=== PATIENT | male | born 1980 | race Caucasian/White ===

== ENCOUNTER → 2024-05-20 | Outpatient (CLI) | payer MEDICARE ==
--- NOTE | 2024-05-20 11:22 | CA ---
Transthoracic Echo Report Name: Sergei Serrato Age: 44 Gender: M : 1980 Exam Date: 05/20/2024 08:36 Exam Location: [facility] Ht (in): 47 Wt (lb): 90 Ordering Physician: Levi Cornejo DO Attending/Referring Phys: [employer] Fabricator Melani Avitia RDCS Procedure CPT: Indications: Cardiac Murmur Cardiac Hx: Technical Quality: Fair Contrast 1: Total Dose (mL): Contrast 2: Total Dose (mL): MEASUREMENTS (Male / Female) Normal Values 2D ECHO LV Diastolic Diameter PLAX 3.7 cm 4.2 - 5.9 / 3.9 - 5.3 cm LV Systolic Diameter PLAX 2.6 cm IVS Diastolic Thickness 0.8 cm 0.6 - 1.0 / 0.6 - 0.9 cm LVPW Diastolic Thickness 0.8 cm 0.6 - 1.0 / 0.6 - 0.9 cm LV Relative Wall Thickness 0.4 LVOT Diameter 2.0 cm Aortic Root Diameter 3.1 cm LV Diastolic Volume MOD BP 88.4 cm??? 67 - 155 / 56 - 104 cm??? LV Systolic Volume MOD BP 40.6 cm??? 22 - 58 / 19 - 49 cm??? LV Ejection Fraction MOD BP 54.1 % >= 55 % LV Cardiac Index MOD BP 2816.2 cm???/min???m??? LV Diastolic Volume MOD 4C 80.1 cm??? LV Systolic Volume MOD 4C 37.3 cm??? LV Ejection Fraction MOD 4C 53.4 % LV Cardiac Index MOD 4C 2521.6 cm???/min???m??? LV Diastolic Length 4C 7.6 cm LV Systolic Length 4C 6.3 cm LV Diastolic Volume MOD 2C 92.2 cm??? LV Systolic Volume MOD 2C 40.3 cm??? LV Ejection Fraction MOD 2C 56.3 % LV Cardiac Index MOD 2C 3061.5 cm???/min???m??? LV Diastolic Length 2C 8.1 cm LV Systolic Length 2C 5.7 cm LA Volume 38.0 cm??? 18 - 58 / 22 - 52 cm??? LA Volume Index 32.0 cm???/m??? 16 - 28 cm???/m??? Ascending Aorta Diameter 3.4 cm DOPPLER AV Peak Velocity 269.9 cm/s AV Peak Gradient 29.1 mmHg AV Mean Velocity 168.6 cm/s AV Mean Gradient 13.1 mmHg AV Velocity Time Integral 54.1 cm LVOT Peak Velocity 120.9 cm/s LVOT Peak Gradient 5.8 mmHg LVOT Velocity Time Integral 25.8 cm LVOT Stroke Volume 80.2 cm??? LVOT Stroke Volume Index 72.0 ml/m??? LVOT Cardiac Index 4728.5 cm???/min???m??? AV Area Cont Eq vti 1.5 cm??? AV Area Cont Eq pk 1.4 cm??? MV Area PHT 4.4 cm??? Mitral E Point Velocity 70.4 cm/s Mitral A Point Velocity 47.8 cm/s Mitral E to A Ratio 1.5 MV Deceleration Time 174.1 ms TR Peak Velocity 228.5 cm/s TR Peak Gradient 20.9 mmHg Right Atrial Pressure 5.0 mmHg Pulmonary Artery Systolic Pressu 25.9 mmHg Right Ventricular Systolic Press 25.9 mmHg PV Peak Velocity 91.3 cm/s PV Peak Gradient 3.3 mmHg FINDINGS Left Ventricle Left ventricular ejection fraction is estimated at 50-55 %. Left ventricular cavity size normal. Left ventricular wall thickness normal. No obvious regional wall motion abnormalities. Right Ventricle Normal right ventricular size and function. Right ventricular systolic pressure within normal limits. Right Atrium Normal right atrial size. Left Atrium Mildly increased left atrial volume. Mitral Valve Structurally normal mitral valve. No evidence for mitral valve prolapse. No mitral stenosis. Trace mitral regurgitation. Aortic Valve Unable to rule out bicuspid aortic valve. Mild aortic stenosis. Moderate aortic regurgitation. Tricuspid Valve Structurally normal tricuspid valve. No tricuspid stenosis. Trace tricuspid regurgitation. Pulmonic Valve Structurally normal pulmonic valve. No pulmonic stenosis. No pulmonic regurgitation. Pericardium No pericardial effusion. Aorta Normal size aortic root and proximal ascending aorta. CONCLUSIONS Normal biventricular systolic function Normal pulmonary artery systolic pressure Poorly seen aortic valve. The aortic valve is sclerotic. Moderate aortic insufficiency and mild aortic stenosis identified Cannot rule out bicuspid aortic valve Normal aortic root and ascending aorta Previewed by: Dr. Todd Ramirez MD (Electronically Signed) Final Date: 20 May 2024 11:21
== END | disposition home or self-care (01) ==
LOC: RADECHMAIN 08:12
PROVIDERS: ATTEND Family Medicine
DX: R01.1 Cardiac murmur, unspecified (principal)
CPT/HCPCS: 93306